=== PATIENT | male | born 1955 | race Caucasian/White ===

== ENCOUNTER 2017-02-28 02:36 | Inpatient (IN) | payer OTHER ==
[~2017-02-28] VITALS: Ht 182.9 cm; Wt 60.0 kg
[~2017-02-28 02:36] MED LIST: DILANTIN; KEPPRA
[2017-02-28 02:40] VITALS: Ht 182.9 cm; Wt 60.0 kg
[2017-02-28] MEDS ORDERED: SOD CHLORIDE 0.9% 500 ML IV STA (02:51)
[2017-02-28] MEDS ORDERED: HYDROCODONE/APAP (10/325) TAB PO ONE (03:00)
[2017-02-28 03:31] LABS: ADD SCAN DIFF NO
--- NOTE | 2017-02-28 03:31 | RADRPT ---
PROCEDURE: XR Elbow. CLINICAL INDICATION: Swelling TECHNIQUE: AP, lateral and oblique views of the right elbow performed. COMPARISON: None. FINDINGS: There is focal soft tissue edema posterior to the proximal ulna. No fracture, dislocation, and/or e ffusion is seen. There is linear calcification at the triceps insertion consistent with enthesopath y. Slight adjacent soft tissue swelling. IMPRESSION: Focal soft tissue swelling posterior to the ulna of uncertain etiology. Triceps enthesopathy. If t here is no known history of trauma, MRI with without contrast may be helpful to exclude soft tissue mass. RPTAT: HLBE Physician Gonzalo Date Time Electronically viewed and signed by Cielo Ann Physician on 02/28/2017 03:30 LE/
[2017-02-28 03:33] LABS: BASOPHILS % 0.2 % (0.0-2.0); EOSINOPHILS # 0.1 10^3/ul (0.0-0.5); EOSINOPHILS % 1.8 % (0.0-7.0); HEMATOCRIT 40.6 % (42.0-52.0); HEMOGLOBIN 13.2 g/dl (14.0-18.0); LYMPHOCYTES # 0.9 10^3/ul (0.8-2.9); LYMPHOCYTES % 15.2 % (15.0-51.0); MEAN CORPUSCULAR HGB CONC 32.5 g/dl (32.0-37.0); MEAN CORPUSCULAR VOLUME 92.3 fl (82.0-101.0); MEAN PLATELET VOLUME 9.6 fl (7.4-10.4); MONOCYTE # 0.5 10^3/ul (0.3-0.9); MONOCYTES % 8.7 % (0.0-11.0); NEUTROPHIL # 4.4 10^3/ul (1.6-7.5); NEUTROPHILS % 73.6 % (39.0-77.0); PLATELET COUNT 272 10^3/UL (140-415); RED CELL DISTRIBUTION WIDTH 12.8 % (11.5-14.5)
[2017-02-28 03:50] LABS: ALBUMIN 4.1 g/dl (3.3-4.9)
[2017-02-28 03:52] LABS: INR 0.86; PROTIME 11.7 Sec (12.2-14.2); PT RATIO 0.9
[2017-02-28 03:53] LABS: ALBUMIN/GLOBULIN RATIO 1.2; BILIRUBIN,INDIRECT 0.3 mg/dl (0-1.1); BILIRUBIN,TOTAL 0.3 mg/dl (0.2-1.3); CREATININE 0.87 mg/dl (0.61-1.24); PARTIAL THROMBOPLASTIN TIME 25.8 Sec (25.0-35.0); TOTAL PROTEIN 7.5 g/dl (6.1-8.1)
[2017-02-28 03:54] LABS: CALCIUM 8.8 mg/dl (8.4-10.2)
[2017-02-28] MEDS ORDERED: CEFEPIME 2GM/50 ML (PMX) 50 ML IVPB STA (04:31)
[2017-02-28] MEDS ORDERED: ACETAMINOPHEN 325 MG TAB PO PRN (05:00)
[2017-02-28] MEDS ORDERED: VANCOMYCIN IV PER PHARMACY XX SCH (05:00)
[2017-02-28] MEDS ORDERED: HYDROCODONE/APAP (5/325) TAB PO PRN ×2 (05:00)
[2017-02-28] MEDS ORDERED: NACL 0.9% 3 ML SYG IV SCH (05:00)
[2017-02-28] MEDS ORDERED: VANCOMYCIN 1 GM (PMX) 250 ML IVPB ONE (05:00)
[2017-02-28] MEDS ORDERED: METOCLOPRAMIDE 10 MG INJ IV PRN (05:00)
[2017-02-28] MEDS ORDERED: ONDANSETRON 4 MG TAB PO PRN (05:00)
--- NOTE | 2017-02-28 05:03 | ERA ---
ER Documentation Chief Complaint Date/Time DATE: 02/28/17 TIME: 05:01 Chief Complaint right elbow pain r/t infection; signed out ama from [place] 3 days ago HPI Infection. Patient was admitted and seen a hospital and this is a 61-year-old male with right elbow infection and pain. Patient was admitted since he also signed out AMA 2 days ago. Comes in with increased pain swelling and redness. Denies any fevers or chills. Denies any nausea vomiting. Denies any other current complaints. ROS All systems reviewed and are negative except as per history of present illness. Medications Home Meds Reported Medications [Dilantin] No Conflict Check 08/29/10 [Keppra] No Conflict Check 08/29/10 Allergies Allergies: Coded Allergies: No Known Drug Allergies (Verified Allergy, Mild, 08/29/10) PMhx/Soc History of Surgery: Yes (plates and screws in R elbow) Anesthesia Reaction: No Hx Neurological Disorder: Yes (SEIZURE) Hx Respiratory Disorders: No Hx Cardiac Disorders: No Hx Psychiatric Problems: No Hx Miscellaneous Medical Probl: No Hx Alcohol Use: No Hx Substance Use: No Hx Tobacco Use: No Smoking Status: Never smoker Physical Exam Vitals Vital Signs Date Time Temp Pulse Resp B/P Pulse Ox O2 Delivery O2 Flow Rate FiO2 02/28/17 02:40 97.5 61 18 155/83 97 Physical Exam Const: [] Head: Atraumatic Eyes: Normal Conjunctiva ENT: Normal External Ears, Nose and Mouth. Neck: Full range of motion..~ No meningismus. Resp: Clear to auscultation bilaterally Cardio: Regular rate and rhythm, no murmurs Abd: Soft, non tender, non distended. Normal bowel sounds Skin: No petechiae or rashes Back: No midline or flank tenderness Ext: Right elbow swollen painful and tender. No fluctuance noted. Neur: Awake and alert Psych: Normal Mood and Affect Result Diagram: 02/28/17 0313 02/28/17 0313 Results 24 hrs Laboratory Tests Test 02/28/17 03:13 White Blood Count 6.010^3/ul Red Blood Count 4.4010^6/ul Hemoglobin 13.2g/dl Hematocrit 40.6% Mean Corpuscular Volume 92.3fl Mean Corpuscular Hemoglobin 30.0pg Mean Corpuscular Hemoglobin Concent 32.5g/dl Red Cell Distribution Width 12.8% Platelet Count 66586^3/UL Mean Platelet Volume 9.6fl Neutrophils % 73.6% Lymphocytes % 15.2% Monocytes % 8.7% Eosinophils % 1.8% Basophils % 0.2% Nucleated Red Blood Cells % 0.0/100WBC Neutrophils # 4.410^3/ul Lymphocytes # 0.910^3/ul Monocytes # 0.510^3/ul Eosinophils # 0.110^3/ul Basophils # 0.010^3/ul Nucleated Red Blood Cells # 0.010^3/ul Prothrombin Time 11.7Sec Prothrombin Time Ratio 0.9 INR International Normalized Ratio 0.86 Activated Partial Thromboplast Time 25.8Sec Sodium Level 141mmol/L Potassium Level 4.0mmol/L Chloride Level 101mmol/L Carbon Dioxide Level 29mmol/L Anion Gap 15 Blood Urea Nitrogen 18mg/dl Creatinine 0.87mg/dl Glucose Level 95mg/dl Calcium Level 8.8mg/dl Total Bilirubin 0.3mg/dl Direct Bilirubin 0.00mg/dl Indirect Bilirubin 0.3mg/dl Aspartate Amino Transf (AST/SGOT) 57IU/L Alanine Aminotransferase (ALT/SGPT) 43IU/L Alkaline Phosphatase 79IU/L Total Protein 7.5g/dl Albumin 4.1g/dl Globulin 3.40g/dl Albumin/Globulin Ratio 1.20 Lipase 109U/L Current Medications Medications (Trade) Dose Ordered Sig/Jose Route PRN Reason Start Time Stop Time Status Last Admin Dose Admin Acetaminophen/ Hydrocodone Bitart 1 tab 1 tab ONCE ONCE PO 02/28/17 03:00 02/28/17 03:01 DC 02/28/17 03:58 Sodium Chloride 500 ml @ 500 mls/hr Q1H STAT IV 02/28/17 02:51 02/28/17 03:50 DC 02/28/17 03:58 Cefepime HCl 50 ml @ 100 mls/hr ONCE STAT IVPB 02/28/17 04:31 02/28/17 05:00 DC 02/28/17 04:43 Vancomycin HCl (Vancocin) 250 ml @ 125 mls/hr ONCE ONCE IVPB 02/28/17 05:00 02/28/17 06:59 IV Flush (NS 3 ml) 3 ml PER PROTOCOL IV 02/28/17 05:00 Ondansetron HCl (Zofran Tab) 4 mg Q6H PRN PO NAUSEA AND/OR VOMITING 02/28/17 05:00 UNV Metoclopramide HCl (Reglan) 10 mg Q6H PRN IV NAUSEA AND/OR VOMITING 02/28/17 05:00 Acetaminophen (Tylenol Tab) 650 mg Q6H PRN PO PAIN LEVEL 1-3 OR FEVER 02/28/17 05:00 Acetaminophen/ Hydrocodone Bitart ([place] (5/325)) 1 tab Q6H PRN PO MODERATE PAIN LEVEL 4-6 02/28/17 05:00 Acetaminophen/ Hydrocodone Bitart ([place] (5/325)) 2 tab Q6H PRN PO SEVERE PAIN LEVEL 7-10 02/28/17 05:00 Famotidine (Pepcid) 20 mg Q12 PO 02/28/17 09:00 Enoxaparin Sodium (Lovenox) 40 mg DAILY SC 02/28/17 09:00 Vancomycin HCl 1 ea 1 ea NOTE XX 02/28/17 05:00 UNV Cefepime HCl (Maxipime 2gm/50 ml (Pmx)) 50 ml @ 100 mls/hr Q12 IVPB 02/28/17 13:00 Procedures/MDM X-ray Elbow 3V Interpreted by me: Fat Pads: [Normal] Bones: [No fracture] Joints: [No dislocation] Foreign body: [None] Medical decision-making: Patient has what looks to be an infected bursitis versus cellulitis. Started on antibiotics. Admitted to hospitalist. Departure Diagnosis: Primary Impression: Cellulitis Qualified Code: L03.113 - Cellulitis of right upper extremity Additional Impression: Bursitis Qualified Code: M70.21 - Olecranon bursitis of right elbow Condition: Serious JOSS MAST Feb 28, 2017 05:03
[2017-02-28 05:30] VITALS: TEMP 99.1
[2017-02-28 06:25] VITALS: BP 142/82; PULSE 55; RESP 19
[2017-02-28 07:56] VITALS: BP 142/89; RESP 18
[2017-02-28] MEDS: ENOXAPARIN 40 MG/0.4 ML SYG SC SCH ×2 (08:24→08:29)
[2017-02-28] MEDS: FAMOTIDINE 20 MG TAB PO SCH ×2 (08:25→21:38)
[2017-02-28] MEDS ORDERED: hydrALAzine 20 MG INJ IV PRN (09:30)
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
[2017-02-28] MEDS ORDERED: VANCOMYCIN 1.25 GM in SOD CHLORIDE 0.9% 250 ML IVPB SCH (14:00)
[2017-02-28] MEDS: CEFEPIME 2GM/50 ML (PMX) 50 ML IVPB SCH ×2 (14:52→21:38)
--- NOTE | 2017-02-28 15:12 | RADRPT ---
PROCEDURE: Ultrasound of the soft tissues of the right elbow posteriorly. CLINICAL INDICATION: Palpable lesion in the right elbow posteriorly. TECHNIQUE: High-resolution sonography of the right elbow posteriorly at the site of the palpable l esion was performed in the axial and sagittal planes. COMPARISON: None FINDINGS: There is no fluid collection or mass in the soft tissues of the right elbow. There is no abnormalit y at the site of the palpable lesion in the right elbow posteriorly. IMPRESSION: 1. No abnormality at the site of the palpable lesion in the soft tissues of the right elbow posteri cecilia. 2. Any further management regarding the palpable lesion should be based on clinical grounds. RPTAT: QQ .Greg Ang MD, MD Date Time Electronically viewed and signed by .Greg Ang MD, on 02/28/2017 15:12 .R/
[2017-02-28 17:03] LABS: CHOL/HDL RATIO 2.4 RATIO
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
[2017-02-28 21:37] VITALS: BP 162/93; RESP 20
[2017-02-28 22:00] VITALS: BP 132/72
--- NOTE | 2017-03-02 07:16 | DS ---
DATE OF ADMISSION: 02/28/2017 DATE OF DISCHARGE: 03/01/2017 (Left against medical advice) ADMITTING DIAGNOSES: 1. Right elbow area cellulitis. 2. Remote history of seizure. 3. Substance abuse. 4. Noncompliance. CONSULTATION: Dr. Rashid Gordon, Infectious Disease. HOSPITAL COURSE: This is a 61-year-old male who denied any significant past medical history other than a remote history of seizure disorder with history of recurrent right elbow cellulitis and edema who came to the emergency room because of right elbow edema and pain. The patient was recently admitted to [facility], where he reportedly had an incision and drainage of the right elbow area. Apparently he signed out against medical advice from the hospital. Upon arrival to the emergency room, the patient denied fevers. He denied any drainage coming out from the right elbow. The patient verbalized decreased range of motion of the right elbow joint. In the emergency room, the patient underwent a right elbow x-ray that showed focal soft -tissue swelling posterior to the ulna of uncertain etiology with triceps enthesopathy. The patient was admitted to inpatient medical/surgical floor. Pancultures were ordered. The patient was started on empiric antibiotics. An infectious disease consult was called on this patient. The patient was maintained on antibiotic as per Infectious Disease. The patient also underwent a right elbow soft-tissue ultrasound that showed no abnormality at the site of palpable lesions in the soft tissues. The patient's blood cultures came out negative. On 03/01/2017, the patient left the hospital against medical advice. The patient was informed about the consequences of leaving against medical advice including the possibility of . Nevertheless, the patient decided to leave the hospital against medical advice. No discharge planning was done on this patient since the patient left the hospital against medical advice. PERTINENT LABORATORY AND DIAGNOSTIC DATA: 1. CBC: WBC 6.0, hemoglobin 13.2, hematocrit 40.6, platelet count 272. 2. BMP: Sodium 141, potassium 4.0, chloride 101, anion gap 15, BUN 18, creatinine 0.87, glucose 95. 3. Hemoglobin A1c 5.4. 4. Fasting lipid panel: Triglycerides 69, total cholesterol 132, LDL 63, HDL 55. 5. Blood cultures x2 were negative. 6. X-ray of the right elbow. Focal soft-tissue swelling posterior to the ulna of uncertain etiology. Triceps enthesopathy. 7. Soft-tissue ultrasound of the right elbow area. No abnormality at the site of palpable lesion in the soft tissues of the right elbow posteriorly. At this time, I would like to thank Dr. Gordon for seeing the patient and providing clinical recommendations. The case and management of this patient was fully discussed with Dr. Buck. JADE BUCK MD, AM/ABRAHAM Conf#: [id number] DID#: [id number] MTDD
== END 2017-03-01 02:39 | disposition left against medical advice (07) | DRG 603 ==
LOC: E/R 02:36 → PP2 04:35
PROVIDERS: ADMIT Family Medicine; ATTEND Family Medicine
DX: L03.113 Cellulitis of right upper limb (principal); F19.10 Other psychoactive substance abuse, uncomplicated; M71.9 Bursopathy, unspecified; G40.909 Epilepsy, unspecified, not intractable, without status epilepticus; Z91.19 Patient's noncompliance with other medical treatment and regimen
CPT/HCPCS: 36415; 76536; 80053; 80061; 80185; 83036; 83690; 84439; 84443; 85025; 85610; 85651; 85730; 86140; 87040; 87081; 96374; 96375; J0692; J1650; J3370; J7040; J7050

== ENCOUNTER 2017-09-21 19:12 | Emergency (ER) | payer OTHER ==
[~2017-09-21] VITALS: Ht 182.9 cm; Wt 79.5 kg
[2017-09-21 19:15] VITALS: Ht 182.9 cm; Wt 79.5 kg
--- NOTE | 2017-09-21 22:55 | RADRPT ---
PROCEDURE: CT BRAIN WITHOUT CONTRAST. CLINICAL INDICATION: Headache status post head injury TECHNIQUE: A CT of the brain was performed on a multidetector high-resolution CT scanner utilizing axial imaging from the skull base through the vertex without IV contrast. Multiplanar reformatted images were made. Images were reviewed on a PACS workstation. The CTDIvol is 43.2 mGy and the DLP is 866.2 mGycm. One or more of the following dose reduction techniques were used: - Automated exposure control. - Adjustment of the mA and/or kV according to patient size. - Use of iterative reconstruction technique. COMPARISON: None FINDINGS: The posterior fossa structures are unremarkable. The pamela, midbrain, and medulla appear to be with n ormal limits. There is no evidence of acute intracranial hemorrhage, infarct, or extra-axial fluid collection. No gross mass effect or midline shift. Cerebral sulci, cisternal spaces, and ventricles are within norm al limits. The visualized paranasal sinuses are clear. The mastoid air cells are well-aerated. Frontal extracal varial soft tissue swelling. No acute fractures of the skull.. IMPRESSION: 1. No evidence of acute intracranial hemorrhage, infarct, or extra-axial fluid collection. 2. Frontal extracalvarial soft tissue swelling. No evidence of acute fractures of the skull. RPTAT: AAPP Physician Clementina Date Time Electronically viewed and signed by Physician Clementina on 09/21/2017 22:55 LILLIE/
[2017-09-21] MEDS ORDERED: ACET325T33 PO (23:04)
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
[2017-09-21 23:35] VITALS: BP 176/99; PULSE 63; RESP 18; TEMP 97.4
== END 2017-09-21 23:37 | disposition home or self-care (01) ==
LOC: FTE 19:12
DX: S01.81XA Laceration without foreign body of other part of head, initial encounter (principal); V13.4XXA Pedal cycle driver injured in collision with car, pick-up truck or van in traffic accident, initial encounter
CPT/HCPCS: 70450; Z7502